=== PATIENT | female | born 1980 | race Caucasian/White ===

== ENCOUNTER → 2017-09-06 16:08 | Outpatient (CLI) | payer OTHER, SELFPAY ==
[2017-09-07 11:36] LABS: Strep Grp B PCR NEG for Grp B Strep
== END ==
PROVIDERS: PCP Obstetrics & Gynecology; Visit Provider Obstetrics & Gynecology
DX: Z34.83 Encounter for supervision of other normal pregnancy, third trimester (principal)
CPT/HCPCS: 87653

== ENCOUNTER 2017-09-26 05:45 | Inpatient (IN) | payer OTHER, SELFPAY ==
[2017-09-26 09:04] LABS: Add Manual Diff / Slide Review NO; Basophils Percent Auto 0.5 % (0-2); Eosinophils Percent Auto 0.4 % (2-4); Hematocrit 42.4 % (36-46); Hemoglobin 14.7 g/dL (12.0-16.0); Lymphocytes Percent Auto 14.7 % (25-40); Mean Corpuscular HGB Conc 34.8 % (30-36); Mean Corpuscular Volume 91.8 fL (80-100); Neutrophils Absolute Auto 7200 /uL (3000-5900); Neutrophils Percent Auto 75.4 % (50-75); Platelet Count 158 X10^3/uL (150-400); Red Blood Cell Count 4.62 X10^6/uL (4.0-5.2); Red Cell Distribution Width 12.4 % (11.6-14.8); White Blood Cell Count 9.5 X10^3/uL (4.5-11.0)
[2017-09-26] MEDS: LACTATED RINGERS 1,000 ML 100 ML IV (10:00)
[2017-09-26 11:15] VITALS: BP 123/82
[2017-09-26] MEDS: IBUPROFEN 600 MG TABLET PO (20:00)
[2017-09-27 05:59] LABS: Hematocrit 39.9 % (36-46); Hemoglobin 13.6 g/dL (12.0-16.0)
[2017-09-27] MEDS: IBUPROFEN 600 MG TABLET PO (06:04)
[2017-09-27] MEDS: PRENATAL VIT,CALC/IRON/FOLIC 1 TABLET 1 TAB PO (08:50)
[2017-09-27] MEDS: DOCUSATE 250 MG CAPSULE PO (08:51)
[2017-09-27] MEDS: LABETALOL 100 MG TABLET PO (09:14)
[2017-09-27] MEDS: MEASLES,MUMPS,RUBELLA VACC/PF 0.5 ML VIAL SUBCUT (15:41)
--- NOTE | 2017-09-30 12:05 | PM.OBHP.1 ---
OB HPI Date/Time Date of admission: 09/26/17 Date Patient Seen: 09/26/17 Time Patient Seen: 07:30 History of Present Illness Chief complaint: Evaluation of Labor : 6 Para: 1 Estimated Date of Delivery: 10/08/17 Estimated Gestational Age (weeks): 38+ 2 Narrative: Aida Antunez is a 36 year old female 6 para 1 who presented with spontaneous rupture of membranes at 38-,2/7 weeks gestation History of Present care: good care (8) Dating criteria: LMP confirmed by 1st trimester US Ultrasounds: normal 1st trimester US and normal mid trimester US Obstetrical complications: other (Recurrent losses) Medical complications: immunologic Narrative: MTHFR Preadmission Labs Blood type: O (+) positive -: Antibody screen: negative, GBS status: negative, HBsAG: negative, HIV: negative, HSV 1: positive, HSV 2: negative and RPR/VDLR: negative -: Chlamydia screen: not detected and Gonorrhea screen: not detected -: Rubella: not immune and Varicella: immune HCT: 37.7 HCAB: negative PAP: Normal Quad screen: Normal Urine: Lactobacilli 1 hr GTT: 40 Prior (ies) History: 2005 2 miscarriages 2015 2 miscarriages 06/06/2011 37ks 7 lb 1 oz spontaneous vaginal delivery epi Evaluation Evaluation Baseline heart rate: 130 Variability: Moderate (11-25) monitor accelerations: Present monitor decelerations: Absent Contraction Frequency (minutes): 3 Uterine Contraction Intensity: Moderate Category of Tracing: I Cervical dilation (cm): 1 Cervical effacement (%): 75 station: -3 Laboratory results: Laboratory Tests 09/26/17 09/26/17 09/27/17 08:20 08:20 05:46 WBC 9.5 RBC 4.62 Hgb 14.7 13.6 Hct 42.4 39.9 MCV 91.8 MCH 32.0 MCHC 34.8 RDW 12.4 Plt Count 158 Neut % (Auto) 75.4 H Lymph % (Auto) 14.7 L [place] % (Auto) 9.0 Eos % (Auto) 0.4 L Baso % (Auto) 0.5 Neut # (Auto) 7200 H Blood Type O Positive Antibody Screen Negative Non-invasive Membranes Rupture Test: positive PFSH Medical History 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) Anxiety (Chronic 2004) Depression (Chronic 2004) Fibroids (Chronic ~2007) Hypertension (Chronic 2010) Painful menstrual periods (Chronic 1993) Abnormal Pap smear of cervix (Resolved 2006) Trigger finger, right ring finger (Resolved 2012) Surgical History Anesthesia (Resolved) History of breast augmentation (Resolved 10/2009) History of third molar tooth extraction (Resolved 2005) Status post trigger finger release (Resolved 2012) Family History Father Hypertension Grandmother Age: 83 High cholesterol Grandfather Hypertension Mental health problem Grandmother Heart disease High cholesterol Social History Smoking Status: Never smoker Meds Home Medications Medication Instructions Recorded Confirmed Type breast pump #1 each 08/11/17 09/26/17 Rx labetalol 100 mg PO BID #20 tab 09/27/17 Rx labetalol 100 mg tablet 100 mg PO Q12H #180 tab 09/27/17 Rx Allergies Allergy/AdvReac Type Severity Reaction Status Date / Time No Known Allergies Allergy Verified 09/27/17 07:33 corn AdvReac Verified 09/26/17 11:19 Exam Vital Signs (past 8 hours): Oxygen Delivery Method Room Air Narrative Exam Narrative: Generally: Patient is sitting up in bed, no acute distress Fundal height: 39 cm Estimated weight 7-1/2 lb Extremities: Trace edema, negative Homans Objective Labs Result Diagrams: 09/27/17 05:46 Assessment and Plan (1) 38 weeks gestation of : Current visit: No Status: Acute (2) Spontaneous rupture of membranes: Current visit: No Status: Acute Plan: Medications: New: labetalol 100 mg PO BID Plan: Assessment: 36-year-old 6 para 1 at 38 and 2/7 weeks gestation with spontaneous rupture of membranes Plan: Epidural as necessary Pitocin as needed Expected management to spontaneous vaginal delivery
--- NOTE | 2017-09-30 12:16 | PM.OBPRVD ---
Events: Labor Augmentation Delivery date: 09/26/17 Intrapartal events: None Delivery augmentation: pitocin Route of delivery: Laceration description: Superficial (Perineal and right labial) Delivery repair: chromic Estimated blood loss (mL): 100 Anesthesia type: Epidural Complications: None Narrative: Patient was complete and pushed for 23 min. At 3:10 p.m., a live male delivered spontaneously over an intact perineum. The remainder of the body delivered without difficulty and was placed on mom's abdomen. The cord was double clamped and cut. Cord bloods were obtained. The placenta delivered intact with a 3 vessel cord at 3:13 p.m.. Fundus was massaged to firm. Apgars 9 at 1 min and 9 at 5 min. Weight 7 lb 13.58 oz. A superficial labial and perineal tear were repaired in the usual fashion. . Mom and infant stable to recovery. Plan for aftercare: To routine care
--- NOTE | 2017-09-30 12:20 | PM.OBDS.1 ---
Discharge Providers Date of admission: 09/26/17 05:45 Primary care physician: Manjula Chew MD Consults: 09/26/17 19:21 Consult to Farm Instructor Routine Comment: Discharge provider: Manjula Chew MD Discharge Date: 09/27/17 Summary Date Patient Seen: 09/27/17 Time Patient Seen: 13:45 Hospital Course: Patient is a 36-year-old 6 para 2 who presented on 09/26/2017 with spontaneous rupture of membranes. She underwent a spontaneous vaginal delivery later in the day. Her course was unremarkable. Discharge Diagnosis (1) 38 weeks gestation of : Status: Acute (2) Spontaneous rupture of membranes: Status: Acute Time Spent with Patient Total time spent providing and/or coordinating discharge services: Objective Labs Result Diagrams: 09/27/17 05:46 Discharge Plan Discharge Plan Patient Disposition: Home, Self-Care Discharge Med Rec/Prescriptions Prescriptions: New labetalol 100 mg tablet 100 mg PO BID Qty: 20 RF: 0 No Action breast pump device .Route .MEDSUPPLY Qty: 1 RF: 0 labetalol 100 mg tablet 100 mg PO Q12H Qty: 180 RF: 3 Follow up/Referrals: Manjula Chew MD [Primary Care Provider] - 6 Weeks (please follow up w/ Dr. Chew on November 02 @ 10:30am) Provider Discharge Instructions Diet: Diet as Tolerated Activity: No intercourse Wound Care Report to your healthcare provider any signs of infection, such as:: chills, fever and unusual drainage Visit Report/Discharge Packet Instructions: DI for Labor and Delivery, Vaginal Visit Report Forms: Stroke Signs & Symptoms Discharge Data Primary Care Provider: Manjula Chew Attending Provider: Manjula Chew Admit Date/Time: 09/26/17 05:45 Discharges patient from system. Discharge Date/Time: 09/27/17 16:30
== END 2017-09-27 16:30 | disposition home or self-care (01) | DRG 774 ==
PROVIDERS: Admitting Provider Obstetrics & Gynecology; PCP Obstetrics & Gynecology; Visit Provider Obstetrics & Gynecology
DX: O26.23 Pregnancy care for patient with recurrent pregnancy loss, third trimester (principal); O10.92 Unspecified pre-existing hypertension complicating childbirth; E72.12 Methylenetetrahydrofolate reductase deficiency; Z3A.38 38 weeks gestation of pregnancy; Z37.0 Single live birth; O70.0 First degree perineal laceration during delivery; O99.284 Endocrine, nutritional and metabolic diseases complicating childbirth; F41.9 Anxiety disorder, unspecified; F32.9 Major depressive disorder, single episode, unspecified
CPT/HCPCS: 01967; 36415; 59050; 59400; 84112; 85014; 85018; 85025; 86850; 86900; 86901; G0379; J3010

== ENCOUNTER → 2019-06-14 09:16 | Outpatient (CLI) | payer OTHER, SELFPAY ==
[2019-06-14 10:20] LABS: Blood Urea Nitrogen 20 mg/dL (7-17); Calcium 9.5 mg/dL (8.4-10.2); Carbon Dioxide 31 mmol/L (22-32); Chloride 101 mmol/L (98-107); Estimated Glomerular Filt Rate > 60.0 mL/min (>60); Glucose 88 mg/dL (70-100); HEMOLYSIS < 15 (0-50); Potassium 4.1 mmol/L (3.4-5.1); Sodium 138 mmol/L (137-145)
== END ==
PROVIDERS: PCP Family Medicine; Referring Provider Family Medicine; Visit Provider Family Medicine
DX: I10 Essential (primary) hypertension (principal)
CPT/HCPCS: 36415; 80048

== ENCOUNTER → 2019-12-25 16:26 | Outpatient (CLI) | payer OTHER, SELFPAY ==
[2019-12-25 17:48] LABS: TSH w/ Reflex to FT4 2.34 uIU/mL (0.47-4.68)
== END ==
PROVIDERS: PCP Family Medicine; Referring Provider Family Medicine; Visit Provider Family Medicine
DX: R53.83 Other fatigue (principal)
CPT/HCPCS: 36415; 83001; 83002; 84443

== ENCOUNTER → 2020-02-13 13:44 | Outpatient (CLI) | payer OTHER, SELFPAY ==
[2020-02-13 16:15] LABS: Free T3, Triiodothyronine Free 3.29 pg/mL (2.77-5.27); Free T4, Direct Thyroxine 1.11 ng/dL (0.78-2.19)
[2020-02-13 16:34] LABS: Testosterone 11.9 ng/dL (5.71-77.0)
[2020-02-13 16:55] LABS: Follicle Stimulating Hormone 5.67 mIU/mL; Luteinizing Hormone 4.86 mIU/mL
[2020-02-13 17:10] LABS: Estradiol, Total 66.6 pg/mL
[2020-02-14 07:42] LABS: Thyroid Peroxidase Antibodies <9 IU/mL (0-34)
== END ==
PROVIDERS: PCP Family Medicine; Referring Provider Family Medicine; Visit Provider Family Medicine
DX: R53.83 Other fatigue (principal); R63.5 Abnormal weight gain
CPT/HCPCS: 36415; 82670; 83001; 83002; 84403; 84439; 84481; 86376

== ENCOUNTER → 2020-02-21 11:01 | Outpatient (CLI) | payer OTHER, SELFPAY ==
[2020-02-21 14:25] LABS: Progesterone, Total 4.62 ng/mL
== END ==
PROVIDERS: PCP Family Medicine; Referring Provider Family Medicine; Visit Provider Family Medicine
DX: R53.83 Other fatigue (principal); R63.5 Abnormal weight gain
CPT/HCPCS: 36415; 84144

== ENCOUNTER → 2020-05-22 16:35 | Outpatient (CLI) | payer OTHER, SELFPAY ==
[2020-05-22 17:32] LABS: Erythrocyte Sedimentation Rate 3 MM/HR (0-20)
[2020-05-22 17:39] LABS: C-Reactive Protein Quant < 0.5 mg/dL (<1.0)
== END ==
PROVIDERS: PCP Family Medicine; Referring Provider Family Medicine; Visit Provider Family Medicine
DX: M25.40 Effusion, unspecified joint (principal)
CPT/HCPCS: 36415; 85651; 86140

== ENCOUNTER → 2020-08-14 12:51 | Outpatient (CLI) | payer OTHER, SELFPAY ==
--- NOTE | 2020-08-14 12:54 | DI.RAD.S_ITS ---
PROCEDURE: XR SACRUM COCCYX MIN 2V INDICATIONS: sacral pain TECHNIQUE: 3 views of the sacrum and coccyx acquired. COMPARISON: None. FINDINGS: Bones: Chronic deformity involving mid to distal coccyx is seen. No gross acute fracture or dislocation.. No suspicious bony lesions. Soft tissues: Visualized bowel gas pattern is normal. No suspicious soft tissue densities. IMPRESSION: Likely old injury involving mid to distal coccyx. No other fracture or dislocation is seen. Dictated by: Gian Schmitt M.D. on 08/14/2020 at 14:41 Approved by: Gian Schmitt M.D. on 08/14/2020 at 14:42
--- NOTE | 2020-08-14 12:54 | DI.RAD.S_ITS ---
PROCEDURE: XR ELBOW RT 2V INDICATIONS: elbow pain TECHNIQUE: 3 views of the elbow were acquired. COMPARISON: None. FINDINGS: Bones: No fractures or dislocations. No suspicious bony lesions. Soft tissues: No elbow joint effusion. No suspicious soft tissue calcifications. IMPRESSION: No elbow fracture or dislocation. No evidence of joint effusion. Dictated by: Gian Schmitt M.D. on 08/14/2020 at 14:37 Approved by: Gian Schmitt M.D. on 08/14/2020 at 14:41
== END ==
PROVIDERS: PCP Family Medicine; Referring Provider Family Medicine; Visit Provider Family Medicine
DX: M53.3 Sacrococcygeal disorders, not elsewhere classified (principal); M25.521 Pain in right elbow; Z91.81 History of falling
CPT/HCPCS: 72220; 73070

== ENCOUNTER → 2022-03-19 08:41 | Outpatient (CLI) | payer OTHER, SELFPAY ==
--- NOTE | 2022-03-19 | DI.MG.S_ITS ---
BILATERAL DIGITAL SCREENING MAMMOGRAM 3D/2D WITH CAD: 03/19/2022 CLINICAL: Baseline exam. Routine screening. No prior exams were available for comparison. Both breasts are extremely dense, which lowers the sensitivity of mammography (category d />75% glandular tissue). Current study was also evaluated with a Computer Aided Detection (CAD) system. No significant masses, calcifications, or other findings are seen in either breast. IMPRESSION: NEGATIVE There is no mammographic evidence of malignancy. A 1 year screening mammogram is recommended. Based on Tyrer-Cuzick model (a risk assessment model), the patient's lifetime risk is 23.6% and her 10 year risk is 3.4%. If a patient has an elevated risk, a more comprehensive evaluation should be considered and/or a referral to a genetic counselor. The [employer], [employer], and NCCN Guidelines advise the consideration of Breast MRI as an adjunct to screening mammography in patients whose Lifetime risk to develop breast cancer is 20% or higher. This exam was interpreted at Station ID: [id number]. NOTE: For mammograms, a report in lay terms will be sent to the patient. Approximately 15% of breast malignancies will not be visualized mammographically. In the management of a palpable breast mass, a negative mammogram must not discourage biopsy of a clinically suspicious lesion. Electronically Signed By: Kip Henry M.D., jr/calli:03/19/2022 12:05:44 letter sent: Normal Exam ACR BI-RADS Category 1: Negative [id number]
== END ==
PROVIDERS: PCP Family Medicine; Referring Provider Family Medicine; Visit Provider Family Medicine
DX: Z12.31 Encounter for screening mammogram for malignant neoplasm of breast (principal)
CPT/HCPCS: 77063; 77067

== ENCOUNTER → 2023-05-12 11:28 | Outpatient (CLI) | payer OTHER, SELFPAY ==
--- NOTE | 2023-05-12 | DI.MG.S_ITS ---
BILATERAL DIGITAL SCREENING MAMMOGRAM 3D/2D WITH CAD: 05/12/2023 CLINICAL: Routine screening. Comparison is made to exam dated: 03/19/2022 mammogram - [facility]. Both breasts are extremely dense, which lowers the sensitivity of mammography (category d />75% glandular tissue). Current study was also evaluated with a Computer Aided Detection (CAD) system. There is possible architectural distortion in the right breast at 11 o'clock posterior depth. No other significant masses, calcifications, or other findings are seen in either breast. IMPRESSION: INCOMPLETE: NEEDS ADDITIONAL IMAGING EVALUATION The possible architectural distortion in the right breast is indeterminate. Additional views with possible ultrasound are recommended. Based on Tyrer-Cuzick model (a risk assessment model), the patient's lifetime risk is 23.5% and her 10 year risk is 3.7%. If a patient has an elevated risk, a more comprehensive evaluation should be considered and/or a referral to a genetic counselor. The [employer] [employer], [employer], and NCCN Guidelines advise the consideration of Breast MRI as an adjunct to screening mammography in patients whose Lifetime risk to develop breast cancer is 20% or higher. This exam was interpreted at Station ID: [id number]. NOTE: For mammograms, a report in lay terms will be sent to the patient. Approximately 15% of breast malignancies will not be visualized mammographically. In the management of a palpable breast mass, a negative mammogram must not discourage biopsy of a clinically suspicious lesion. Electronically Signed By: Bony Martínez M.D. lc/:05/12/2023 16:12:59 letter sent: Additional Imaging Needed ACR BI-RADS Category 0: Incomplete [id number]
== END ==
LOC: MAMMO 11:28
PROVIDERS: PCP Family Medicine; Referring Provider Family Medicine; Visit Provider Family Medicine
DX: Z12.31 Encounter for screening mammogram for malignant neoplasm of breast (principal); R92.343 Mammographic extreme density, bilateral breasts
CPT/HCPCS: 77063; 77067

== ENCOUNTER → 2023-06-02 08:50 | Outpatient (CLI) | payer OTHER, SELFPAY ==
--- NOTE | 2023-06-02 | DI.MG.S_ITS ---
UNILATERAL RIGHT DIGITAL DIAGNOSTIC MAMMOGRAM 3D/2D WITH ADDITIONAL VIEWS: 06/02/2023 CLINICAL: Additional evaluation requested from prior study. Comparison is made to exams dated: 05/12/2023 mammogram and 03/19/2022 mammogram - [facility]. The right breast is extremely dense, which lowers the sensitivity of mammography (category d />75% glandular tissue). There is possible architectural distortion in the right breast at 11 o'clock posterior depth. This is not seen in additional views. No other significant masses or calcifications are seen in the breast. IMPRESSION: INCOMPLETE: NEEDS ADDITIONAL IMAGING EVALUATION The possible architectural distortion in the right breast is not confirmed. A second look with ultrasound is recommended. Based on Tyrer-Cuzick model (a risk assessment model), the patient's lifetime risk is 23.5% and her 10 year risk is 3.7%. If a patient has an elevated risk, a more comprehensive evaluation should be considered and/or a referral to a genetic counselor. The [employer], [employer], and NCCN Guidelines advise the consideration of Breast MRI as an adjunct to screening mammography in patients whose Lifetime risk to develop breast cancer is 20% or higher. This exam was interpreted at Station ID: [id number]. NOTE: For mammograms, a report in lay terms will be sent to the patient. Approximately 15% of breast malignancies will not be visualized mammographically. In the management of a palpable breast mass, a negative mammogram must not discourage biopsy of a clinically suspicious lesion. Electronically Signed By: Luke Sanz M.D. slc/:06/02/2023 09:24:54 ACR BI-RADS Category 0: Incomplete [id number]
--- NOTE | 2023-06-02 08:51 | DI.US.S_ITS ---
LIMITED ULTRASOUND OF RIGHT BREAST: 06/02/2023 CLINICAL: Patient returns today to evaluate an asymmetry in the right breast. Comparison is made to exams dated: 06/02/2023 mammogram, 05/12/2023 mammogram, and 03/19/2022 mammogram - [facility]. Color flow and real-time ultrasound of the right breast 11 o'clock region were performed. Guerrero scale images of the real-time examination were reviewed. No significant abnormalities were seen sonographically in the right breast. IMPRESSION: NEGATIVE There is no sonographic evidence of malignancy. A 1 year screening mammogram is recommended. Exam findings were conveyed to the patient. This exam was interpreted at Station ID: [id number]. Electronically Signed By: Luke Sanz M.D. slc/:06/02/2023 09:43:05 letter sent: Normal Exam Ultrasound BI-RADS: 1 Negative
== END ==
LOC: MAMMO 08:50
PROVIDERS: PCP Family Medicine; Referring Provider Family Medicine; Visit Provider Family Medicine
DX: R92.8 Other abnormal and inconclusive findings on diagnostic imaging of breast (principal); R92.343 Mammographic extreme density, bilateral breasts
CPT/HCPCS: 76642; 77065; G0279

== ENCOUNTER → 2025-03-02 09:28 | Outpatient (CLI) | payer OTHER, SELFPAY ==
--- NOTE | 2025-03-02 09:33 | DI.MG.S_ITS ---
MM screening mammo BI: 03/02/2025. BI-RADS: 1 CLINICAL: 44-year old female for bilateral screening mammogram. Tyrer-Cuzick lifetime risk of 15.7%. No personal or first-degree family history of breast cancer. PRIOR EXAMS 06/02/2023, 05/12/2023, 03/19/2022. MAMMOGRAPHY TECHNIQUE: 2D and 3D (tomosynthesis) digital mammographic views obtained, with additional images as needed for full coverage. Current study was also evaluated with a Computer Aided Detection (CAD) system. DENSITY D. The breasts are extremely dense, which lowers the sensitivity of mammography. MAMMOGRAPHY FINDINGS Bilateral: No suspicious mass, asymmetry, microcalcification, or other abnormality seen. IMPRESSION: * No evidence of malignancy. RECOMMENDATIONS Bilateral * Annual screening mammography. OVERALL ASSESSMENT CATEGORY BI-RADS-1: Negative. The [employer] recommends annual screening mammography beginning at age 40 for women with average risk of breast cancer. ELECTRONICALLY SIGNED: Mirella Andrade M.D. on 03/04/2025 at 03:55:23 PM PT Interpreting Station ID: [id number]
== END ==
LOC: MAMMO 09:32
PROVIDERS: PCP Family Medicine; Referring Provider Family Medicine; Visit Provider Family Medicine
DX: Z12.31 Encounter for screening mammogram for malignant neoplasm of breast (principal); R92.343 Mammographic extreme density, bilateral breasts
CPT/HCPCS: 77063; 77067